=== PATIENT | female | born 1975 | race African-American/Black ===

== ENCOUNTER → 2023-04-23 | Day surgery (SDC) | payer OTHER | END | disposition home or self-care (01) | LOC: FMAMMOTONE 08:41 | PROVIDERS: ATTEND Family Medicine | PROC: 0HBT3ZX Excision of Right Breast, Percutaneous Approach, Diagnostic (ICD-10-PCS; principal; 2023-04-23) | DX: Z53.8 Procedure and treatment not carried out for other reasons (principal) ==

== ENCOUNTER 2023-08-04 04:23 | Day surgery (SDC) | payer OTHER ==
[2023-07-29 13:30] VITALS: BMI 43.4
[2023-08-04 10:14] VITALS: RESP 18
[2023-08-04] MEDS ORDERED: LIDOCAINE HCL 1%, 10 MG/ML (20ML VIAL) ONE (12:42)
[2023-08-04] MEDS ORDERED: MIDAZOLAM HCL 2 MG/2 ML SINGLE DOSE VIAL ONE (13:02)
[2023-08-04] MEDS ORDERED: SUCCINYLCHOLINE CHLORIDE 200 MG/10 ML SYRINGE ONE ×2 (13:02→13:20)
[2023-08-04] MEDS ORDERED: PROPOFOL 40 ML ONE (13:02)
[2023-08-04] MEDS ORDERED: LIDOCAINE HCL/PF 2% SDV 5ML VIAL ONE (13:04)
[2023-08-04] MEDS ORDERED: GLYCOPYRROLATE 0.2 MG/1 ML VIAL ONE (13:43)
[2023-08-04] MEDS: ceFAZolin SODIUM 1 GM VIAL IVPB ONE (13:50)
[2023-08-04] MEDS: LIDOCAINE HCL 1%, 10 MG/ML (50 mL VIAL) INF ONE ×2 (13:51)
[2023-08-04] MEDS ORDERED: oxyCODONE HCL 5 MG TABLET PO PRN (14:30)
[2023-08-04] MEDS ORDERED: LACTATED RINGERS SOLUTION 1,000 ML IV SCH (14:30)
[2023-08-04] MEDS ORDERED: ONDANSETRON 4 MG/2 ML VIAL IVPUSH PRN (14:30)
[2023-08-04 16:33] VITALS: BP 119/60; PULSE 83; TEMP 97.7
== END 2023-08-04 16:55 | disposition home or self-care (01) ==
LOC: JASU-SURG 04:23
PROVIDERS: ATTEND Surgery
PROC: 0HBT0ZX Excision of Right Breast, Open Approach, Diagnostic (ICD-10-PCS; principal; 2023-08-04 12:00)
DX: N60.21 Fibroadenosis of right breast (principal)
CPT/HCPCS: 19281; 76098-TC-FY; 94760; A4648